=== PATIENT | female | born 1990 | race Caucasian/White ===

== ENCOUNTER 2019-08-20 09:21 | Emergency (ER) | payer SELFPAY | END 2019-08-20 09:47 | disposition home or self-care (01) | LOC: ERS 09:21 | DX: J20.9 Acute bronchitis, unspecified (principal); L01.00 Impetigo, unspecified | CPT/HCPCS: 99283 ==

== ENCOUNTER 2019-08-28 06:32 | Emergency (ER) | payer SELFPAY ==
[2019-08-28 07:36] LABS: ALT (SGPT) 19 U/L (8-55); AST (SGOT) 15 U/L (5-34); Albumin 3.7 g/dL (3.5-5.0); Alkaline Phosphatase 96 U/L (40-110); Anion Gap 11 mmol/L (10-20); BUN (Urea Nitrogen) 14 mg/dL (7.0-18.7); Bilirubin, Total 0.4 mg/dL (0.2-1.2); Calc. Creatinine Clearance 0 mL/min (70-130); Calcium 9.1 mg/dL (7.8-10.44); Carbon Dioxide 29 mmol/L (22-29); Chloride 99 mmol/L (98-107); Estimated GFR-MDRD 75; Globulin 3.1 g/dL (2.4-3.5); Glucose 314 mg/dL (70-105); Potassium 4.3 mmol/L (3.5-5.1); Protein, Total 6.8 g/dL (6.0-8.3); Sodium 135 mmol/L (136-145)
[2019-08-28] MEDS ORDERED: Insulin Regular 300 UNITS/3 ML VIAL ONE (08:23)
[2019-08-28] MEDS ORDERED: Insulin Glargine 20 UNITS in Pre-Filled Syringe 1 EACH SC SCH (09:45)
[2019-08-28] MEDS ORDERED: Insulin Regular 300 UNITS/3 ML VIAL SC SCH (09:45)
== END 2019-08-28 11:12 | disposition home or self-care (01) ==
LOC: ERS 06:32
DX: E10.65 Type 1 diabetes mellitus with hyperglycemia (principal); F41.9 Anxiety disorder, unspecified; F32.9 Major depressive disorder, single episode, unspecified; Z79.4 Long term (current) use of insulin
CPT/HCPCS: 36415; 36416; 80053; 96360; J1815